=== PATIENT | female | born 1960 ===

== ENCOUNTER 2018-09-28 11:44 | Emergency (ER) | payer MEDICAID ==
[2018-09-28 11:59] VITALS: BP 146/81; PULSE 78; RESP 18; TEMP 99; O2SAT 98
--- NOTE | 2018-09-28 12:12 | C.PDOC ---
History Of Present Illness 57 year old female with PMHx of hypothyroidism complaining of right shoulder pain for 4 days. Denies falls or direct trauma. Reports she works out daily and often does repetitive shoulder exercises. States she experienced similar pain once before, 4 years ago. Notes she was given an injection at her Doctor's and felt better, however she does not recall the name of the medication. Pain is worse with movement, specifically internal and external rotation and abduction. Denies any fever, chills, weakness, numbness, paresthesia, chest pain, shortness of breath, or pain elsewhere. Time Seen by Provider: 09/28/18 12:02 Chief Complaint (Nursing): Upper Extremity Problem/Injury History Per: Patient History/Exam Limitations: no limitations Onset/Duration Of Symptoms: Days (4) Current Symptoms Are (Timing): Still Present Quality: "Pain" Exacerbating Factor(s): Movement Past Medical History Reviewed: Historical Data, Nursing Documentation, Vital Signs Vital Signs: Last Vital Signs Temp 99 F 09/28/18 11:55 Pulse 78 09/28/18 11:55 Resp 18 09/28/18 11:55 BP 146/81 09/28/18 11:55 Pulse Ox 98 09/28/18 11:55 - Medical History PMH: Hypothyroidism Surgical History: Family History: States: No Known Family Hx - Social History Hx Alcohol Use: No Hx Substance Use: No - Immunization History Hx Tetanus Toxoid Vaccination: No Hx Influenza Vaccination: No Hx Pneumococcal Vaccination: No Review Of Systems Except As Marked, All Systems Reviewed And Found Negative. Constitutional: Negative for: Fever, Chills Cardiovascular: Negative for: Chest Pain Respiratory: Negative for: Shortness of Breath Musculoskeletal: Positive for: Shoulder Pain (right) Neurological: Negative for: Weakness, Numbness Physical Exam - Physical Exam Appears: Non-toxic, No Acute Distress Skin: Warm, Dry Head: Normacephalic Eye(s): bilateral: Normal Inspection Nose: Normal Oral Mucosa: Moist Neck: Supple Chest: Symmetrical Cardiovascular: Rhythm Regular Respiratory: Normal Breath Sounds, No Rales, No Rhonchi, No Wheezing Extremity: No Normal ROM (decreased ROM of right shoulder secondary to pain ), Tenderness (tenderness over right AC joint and to right anterior shoulder. ), Other (positive shabazz-namrata of right shoulder ) Neurological/Psych: Oriented x3, Normal Speech, Normal Motor, Normal Sensation Gait: Steady ED Course And Treatment O2 Sat by Pulse Oximetry: 98 (RA) Pulse Ox Interpretation: Normal - Other Rad XR right shoulder X-Ray: Viewed By Me, Read By Radiologist Interpretation: Accession No. : [id number]. Patient Name / ID : AUSTIN Geiger / [id number]. Exam Date : 09/28/2018 12:12:41 ( Approved ). Study Comment : Sex / Age : F / 57Y. Creator : Yogesh Campbell MD. D ictator : Yogesh Campbell MD. Supervising Broker : Wildlife Manager : Yogesh Campbell MD. Approver2 : Report Date : 09/28/2018 12:51:35. My Comment : . Right shoulder three views. HISTORY: Pain. COMPARISON: None available. Findings: Probable calcific tendinopathy of the right proximal humerus. Moderate narrowing of the right glenohumeral and acromioclavicular joint spaces. Impression: Calcific tendinopathy of the right proximal humerus. Correlation with MRI may be helpful. Medical Decision Making Medical Decision Making: Initial Plan * Valium 5mg PO * Toradol 60mg IM * XR right shoulder Reports decreased pain with medication. Placed in right shoulder sling prior to discharge, advised followup with PMD and orthopedics. Right shoulder significant for calcific tendonitis. Diagnostic testing results and plan of care discussed with patient. Strict instructions given regarding prescription use, importance of followup, and signs/symptoms to return to ER including numbness, weakness, paresthesias, or any other new/worsening symptoms. Pt verbalized understanding of discussion. Patient is A&Ox3, ambluating with steady gait, with vital signs stable for discharge. Disposition - Disposition Referrals: Moo Ambrosio III, MD [Staff Provider] - Disposition: HOME/ ROUTINE Disposition Time: 13:30 Condition: IMPROVED Additional Instructions: Naproxeno diario segn sea necesario para el dolor. Mantener el brazo en cabestrillo hasta el seguimiento. [place], no actividad extenuante, no levantar objetos pesados Seguimiento con ortopedia dentro de 2 simon para imgenes ambulatorias Seguimiento con primaria dentro de 2 simon. Volver a la julia de emergencias con cualquier sntoma nuevo o que empeora Prescriptions: Meloxicam 15 mg PO DAILY #14 tablet Instructions: Calcific Tendonitis of the Shoulder (DC) Forms: General Discharge Instructions, [facility] (Lebanese), Work Excuse Print Language: BURKINAN - Clinical Impression Clinical Impression: Calcific tendinitis - PA / SOFTWARE DEVELOPMENT INTERN / Resident Statement MD/DO has reviewed & agrees with the documentation as recorded. - Scribe Statement The provider has reviewed the documentation as recorded by the Patsy Ellis All medical record entries made by the Scribe were at my direction and personally dictated by me. I have reviewed the chart and agree that the record accurately reflects my personal performance of the history, physical exam, medical decision making, and the department course for this patient. I have also personally directed, reviewed, and agree with the discharge instructions and disposition.
--- NOTE | 2018-09-28 12:55 | RAD ---
Right shoulder three views HISTORY: Pain. COMPARISON: None available. Findings: Probable calcific tendinopathy of the right proximal humerus. Moderate narrowing of the right glenohumeral and acromioclavicular joint spaces. Impression: Calcific tendinopathy of the right proximal humerus. Correlation with MRI may be helpful.
== END 2018-09-28 13:39 | disposition home or self-care (01) ==
LOC: C.ER 11:44
DX: M75.31 Calcific tendinitis of right shoulder (principal)
CPT/HCPCS: 73030; 96372; 99284; J1885